=== PATIENT | male | born 1985 ===

== ENCOUNTER 2018-10-19 18:03 | Emergency (ER) | payer SELFPAY ==
[~2018-10-19] VITALS: Ht 182.9 cm; Wt 109.1 kg
[2018-10-19 18:08] VITALS: BP 144/86
[2018-10-19] MEDS ORDERED: ACETAMINOPHEN 500 MG TABLET PO ONE (18:15)
== END 2018-10-19 18:30 | disposition left against medical advice (07) ==
LOC: EMS 18:06
DX: S51.812A Laceration without foreign body of left forearm, initial encounter (principal); M25.532 Pain in left wrist; F17.210 Nicotine dependence, cigarettes, uncomplicated; Z53.20 Procedure and treatment not carried out because of patient's decision for unspecified reasons; W26.0XXA Contact with knife, initial encounter; Y93.89 Activity, other specified; Y92.89 Other specified places as the place of occurrence of the external cause; Y99.8 Other external cause status
CPT/HCPCS: 99406